=== PATIENT | male | born 1965 | race Caucasian/White ===

== ENCOUNTER → 2023-08-12 13:07 | Outpatient (REF) | payer BC, SELFPAY | LOC: RAD 13:07 | PROVIDERS: ATTENDING PHYSICIAN Internal Medicine | DX: M54.2 Cervicalgia (principal); M79.602 Pain in left arm | CPT/HCPCS: 72040 ==

== ENCOUNTER → 2024-12-28 07:08 | Outpatient (REF) | payer BC, SELFPAY | LOC: RAD 07:08 | PROVIDERS: ATTENDING PHYSICIAN Internal Medicine | DX: M79.89 Other specified soft tissue disorders (principal); M25.552 Pain in left hip | CPT/HCPCS: 73120; 73140; 73502 ==

== ENCOUNTER → 2025-01-03 14:43 | Outpatient (REF) | payer BC, SELFPAY | LOC: RAD 14:43 | PROVIDERS: ATTENDING PHYSICIAN Chiropractor; FAMILY PHYSICIAN Internal Medicine | DX: S80.02XA Contusion of left knee, initial encounter (principal) | CPT/HCPCS: 73564 ==

== ENCOUNTER → 2025-01-31 | Outpatient (REF) | payer BC, SELFPAY | LOC: DHSLP | PROVIDERS: ATTENDING PHYSICIAN Internal Medicine Cardiovascular Disease; FAMILY PHYSICIAN Internal Medicine | DX: G47.33 Obstructive sleep apnea (adult) (pediatric) (principal) | CPT/HCPCS: 95800 ==